=== PATIENT | female | born 1995 | race Caucasian/White ===

== ENCOUNTER 2024-06-08 19:11 | Inpatient (IN) | payer OTHER, SELFPAY ==
[2024-06-08 19:40] VITALS: BP 150/108; PULSE 99; RESP 18; TEMP 36.8; O2SAT 97; BMI 30.8
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
--- NOTE | 2024-06-09 00:22 | PC.NURSE ---
pt signed a 3 day notice on thursday06/08/24. up on thursday06/14/24.
[2024-06-09] MEDS: LORazepam 1 MG TABLET 2 MG PO (00:31)
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
[2024-06-09] MEDS: Escitalopram Oxalate 10 MG TABLET PO (09:11)
[2024-06-09 11:25] LABS: Estimated Average Glucose 103 mg/dL; Hemoglobin A1C 113.6566 umol/L; Hemoglobin A1c % 5.2 % (<6.0); Total Hemoglobin (HGBA1C) 3420.9918 umol/L
[2024-06-09 11:39] LABS: Alanine Aminotransferase 16 U/L (0-31); Albumin Level 4.4 g/dL (3.5-5.0); Alkaline Phosphatase 85 U/L (39-117); Anion Gap 17 (12-20); Aspartate Amino Transferase 21 U/L (5-31); Bilirubin Total 0.5 mg/dL (0.0-1.0); Blood Urea Nitrogen 12 mg/dL (9-16); Calcium 9.3 mg/dL (8.4-10.2); Carbon Dioxide 21 mmol/L (22-29); Chloride 105 mmol/L (96-108); Cholesterol 147 mg/dL (<200); Creatinine Clr Calc Pharmacy 99.7; Estimated Glomerular Filt Rate > 60; Glucose Fasting 115 mg/dL (60-99); HDL Cholesterol 32 mg/dL (>40); LDL Cholesterol Calculated 97 mg/dL (<100); Potassium 3.5 mmol/L (3.3-5.1); Sodium 139 mmol/L (135-145); Total Protein 7.4 g/dL (6.5-8.0); Triglycerides 92 mg/dL (<150)
[2024-06-09 11:54] LABS: Thyroid Stimulating Hormone 0.95 uIU/mL (0.32-4.0)
[2024-06-09 12:02] LABS: Folate 11.1 ng/mL (> or = 4.0); Vitamin B12 712 pg/mL (200-900)
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
[2024-06-09 15:22] VITALS: BP 133/86; PULSE 98; RESP 20; TEMP 36.8; O2SAT 97
[2024-06-09 20:00] VITALS: BP 151/86; PULSE 117; TEMP 36.9; O2SAT 98
[2024-06-09] MEDS: risperiDONE 0.5 MG TABLET PO (20:19)
[2024-06-10 08:00] VITALS: BP 143/84; PULSE 104; RESP 16; TEMP 36.3; O2SAT 96
[2024-06-10] MEDS: risperiDONE 0.5 MG TABLET PO (08:59)
[2024-06-10] MEDS: oxyBUTYnin chloride 5 MG TABLET PO (08:59)
[2024-06-10] MEDS: Escitalopram Oxalate 10 MG TABLET PO (08:59)
--- NOTE | 2024-06-10 15:04 | HO.PSYCHPN ---
Subjective Subjective Date of Service: 06/10/24 Reason For Visit: Unspec Psychosis Acute Stress Reaction Interim History: Labile, angry, with paranoia. Observed to be caustic and intrusive at times. Confrontive to team Visiting with family today. Denies current concerns, needs Accepting medications Medication Compliance: Yes Side effects from medications: No Attending Groups: No Review of Systems Acute medical concerns: No Review of Systems Review of Systems denies Mental Status Exam Mental Status Exam Patient Appearance: Appropriate Patient Orientation: Person, Place and Situation Level of Consciousness: Awake and Alert Patient Behavior: Cooperative, Suspicious, Wandering and Good Eye Contact Mood Description: Suspicious, Hostile and Labile Affect Description: Labile Patient Cognition Impaired: No Ability to Follow Directions: Fair Speech Pattern: Clear and Spontaneous Speech Memory Description: Episodic Impaired Delusions: Paranoid Ideation Perceptual Disturbances: Derealization Thought Content: positive for Tangential and positive for Disorganized Abnormal Motor Activity Signs and Symptoms: Restlessness Judgement: Poor Diagnostics Vital Signs (24Hr): Vital Signs - 24 hr 06/09/24 15:22 06/09/24 20:00 06/10/24 08:00 Temperature 98.2 F 98.4 F 97.4 F Pulse Rate 98 117 H 104 H Respiratory Rate 20 16 Blood Pressure 133/86 151/86 H 143/84 H Pulse Oximetry 97 98 96 Oxygen Delivery Method Room Air Room Air BMI result Body Mass Index 30.8 Labs 06/09/24 11:01 Labs: Laboratory Results - last 48 hr 06/09/24 11:01 Sodium 139 Potassium 3.5 Chloride 105 Carbon Dioxide 21 L Anion Gap 17 BUN 12 Creatinine 0.81 Estim Creat Clear Calc 99.7 Estimated GFR > 60 Fasting Glucose 115 H Estimat Average Glucose 103 Hemoglobin A1c % 5.2 Calcium 9.3 Total Bilirubin 0.5 AST 21 ALT 16 Alkaline Phosphatase 85 Total Protein 7.4 Albumin 4.4 Triglycerides 92 Cholesterol 147 LDL Cholesterol, Calc 97 HDL Cholesterol 32 L Vitamin B12 712 Folate 11.1 TSH 0.95 Medications Medications Current Medications Acetaminophen (Acetaminophen 325 Mg Tablet) 650 mg PO Q6H PRN PRN Reason: Headache/Pain Mild Scale (1-3) Al Hydroxide/Mg Hydroxide (Magnesium Hydrox/Alum Hydrox 30 Ml Oral.Susp) 30 ml PO Q6H PRN PRN Reason: Heartburn/Nausea Escitalopram Oxalate (Escitalopram Oxalate 10 Mg Tablet) 10 mg PO DAILY [facility] Last Admin: 06/10/24 08:59 Dose: 10 mg Hydroxyzine HCl (Hydroxyzine Hcl 25 Mg Tablet) 25 mg PO Q6H PRN PRN Reason: Anxiety Magnesium Hydroxide (Milk Of Magnesia 30 Ml Oral.Susp) 30 ml PO DAILY PRN PRN Reason: Constipation Nicotine (Nicotine 21 Mg Patch.Td24) 21 mg TRANSDERMA DAILY PRN PRN Reason: nicotine cravings Olanzapine (Olanzapine 5 Mg Tablet) 5 mg PO Q4H PRN PRN Reason: agitation Oxybutynin Chloride (Oxybutynin Chloride 5 Mg Tablet) 5 mg PO DAILY [facility] Last Admin: 06/10/24 08:59 Dose: 5 mg Risperidone (Risperidone 0.5 Mg Tablet) 0.5 mg PO BID [facility] Last Admin: 06/10/24 08:59 Dose: 0.5 mg Trazodone HCl (Trazodone Hcl 50 Mg Tablet) 50 mg PO BEDTIME MRX1 PRN PRN Reason: Insomnia Allergies Allergies Allergy/AdvReac Type Severity Reaction Status Date / Time No Known Allergies Allergy Verified 06/08/24 20:02 Assessment & Plan Assessment & Plan (1) PTSD (post-traumatic stress disorder): Status: Acute Code(s): F43.10 - Post-traumatic stress disorder, unspecified (2) MDD (major depressive disorder), recurrent episode, severe: Status: Acute Code(s): F33.2 - Major depressive disorder, recurrent severe without psychotic features Plan 06/10/24 Continue current plan of care. Reason for continued inpatient stay Substantial Risk for: rapid decompensation Time Spent With Patient Time: Total time managing care of this patient today ____ minutes.
[2024-06-10 20:00] VITALS: BP 136/75; PULSE 127; RESP 16; TEMP 37; O2SAT 98
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
[2024-06-11] MEDS: OLANZapine 10 MG VIAL IM (13:05)
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
[2024-06-11 13:20] VITALS: BP 129/78; PULSE 105; RESP 18; O2SAT 96
--- NOTE | 2024-06-11 13:26 | PC.NURSE ---
Pt increasingly more manic, disorganized as shift goes on. Wanting to leave. Trying to push past staff and visitors trying to elope. Punching holes in wall by door. Refusing all redirection. Happily posturing towards staff while laughing. Security and MD contacted. IMs ordered and given.
[2024-06-12 07:57] VITALS: BP 124/78; PULSE 115; TEMP 36.4; O2SAT 97
[2024-06-12] MEDS: HaloperidoL 5 MG TABLET PO ×2 (08:56→21:42)
[2024-06-12] MEDS: risperiDONE 0.5 MG TABLET PO ×2 (08:57→21:42)
[2024-06-12] MEDS: LORazepam 1 MG TABLET PO ×2 (08:58→21:42)
--- NOTE | 2024-06-12 09:15 | HO.PSYCHPN ---
Subjective Subjective Date of Service: 06/12/24 Reason For Visit: Unspec Psychosis Acute Stress Reaction Interim History: Remains restless, labile, intrusive, loud, agitated and paranoid. Agreed to take Risperdal and Haldol this AM with encouragement from RN. She remained angry. Was yelling and demanding DC and threatening she would harm self. Discussed with staff and alerted them to statements and continued close monitoring. Patient demanding discharge. Insight is very poor. Doesn't see there is anything wrong with her mood and behavior. Continues paranoid. Review of Systems Review of Systems denies Constitutional: Reports as per HPI Eyes: Reports as per HPI Reports as per HPI Cardiovascular: Reports as per HPI Respiratory: Reports as per HPI Gastrointestinal: Reports as per HPI Musculoskeletal: Reports as per HPI Skin/Breast: Reports as per HPI Reports as per HPI Psychiatric: Reports as per HPI Endocrine: Reports as per HPI Hematologic/Lymphatic: Reports as per HPI Allergic/Immunologic: Reports as per HPI Mental Status Exam Mental Status Exam Patient Appearance: Appropriate Patient Orientation: Person, Place and Situation Level of Consciousness: Awake and Alert Patient Behavior: Cooperative, Suspicious, Wandering and Good Eye Contact Mood Description: Suspicious, Hostile and Labile Affect Description: Labile Patient Cognition Impaired: No Ability to Follow Directions: Fair Speech Pattern: Clear and Spontaneous Speech Memory Description: Episodic Impaired Diagnostics Vital Signs (24Hr): Vital Signs - 24 hr 06/11/24 13:20 06/12/24 07:57 Temperature 97.5 F Pulse Rate 105 H 115 H Respiratory Rate 18 Blood Pressure 129/78 124/78 Pulse Oximetry 96 97 Oxygen Delivery Method Room Air Room Air BMI result Body Mass Index 30.8 Labs 06/09/24 11:01 Medications Medications Current Medications Acetaminophen (Acetaminophen 325 Mg Tablet) 650 mg PO Q6H PRN PRN Reason: Headache/Pain Mild Scale (1-3) Al Hydroxide/Mg Hydroxide (Magnesium Hydrox/Alum Hydrox 30 Ml Oral.Susp) 30 ml PO Q6H PRN PRN Reason: Heartburn/Nausea Haloperidol (Haloperidol 5 Mg Tablet) 5 mg PO BID PRN PRN Reason: agitation Last Admin: 06/12/24 08:56 Dose: 5 mg Hydroxyzine HCl (Hydroxyzine Hcl 25 Mg Tablet) 25 mg PO Q6H PRN PRN Reason: Anxiety Lorazepam (Lorazepam 1 Mg Tablet) 1 mg PO BID PRN PRN Reason: Anxiety Last Admin: 06/12/24 08:58 Dose: 1 mg Magnesium Hydroxide (Milk Of Magnesia 30 Ml Oral.Susp) 30 ml PO DAILY PRN PRN Reason: Constipation Nicotine (Nicotine 21 Mg Patch.Td24) 21 mg TRANSDERMA DAILY PRN PRN Reason: nicotine cravings Olanzapine (Olanzapine 5 Mg Tablet) 5 mg PO Q4H PRN PRN Reason: agitation Oxybutynin Chloride (Oxybutynin Chloride 5 Mg Tablet) 5 mg PO DAILY [facility] Last Admin: 06/11/24 08:44 Dose: Not Given Risperidone (Risperidone 0.5 Mg Tablet) 0.5 mg PO BID [facility] Last Admin: 06/12/24 08:57 Dose: 0.5 mg Trazodone HCl (Trazodone Hcl 50 Mg Tablet) 50 mg PO BEDTIME MRX1 PRN PRN Reason: Insomnia Allergies Allergies Allergy/AdvReac Type Severity Reaction Status Date / Time No Known Allergies Allergy Verified 06/08/24 20:02 Assessment & Plan Assessment & Plan (1) PTSD (post-traumatic stress disorder): Status: Acute Code(s): F43.10 - Post-traumatic stress disorder, unspecified (2) MDD (major depressive disorder), recurrent episode, severe: Status: Acute Code(s): F33.2 - Major depressive disorder, recurrent severe without psychotic features Plan 06/10/24 Continue current plan of care. 06/11: MILI Lexapro. Continue to encourage PO medication. 06/12: Patient remains manic and psychotic. Encouraged to take medications. Continue current management and treatment plan. Titrate Risperidone. Reason for continued inpatient stay Substantial Risk for: harm to self, harm to others, inability to function and rapid decompensation Time Spent With Patient Time: Total time managing care of this patient today ____ minutes.
--- NOTE | 2024-06-12 12:56 | PC.NURSE ---
Let me out of here! I want to go home!! It's Thursday, I know it is. You are all lying to me! Patient had numerous outbursts on this shift. One outburst when fresh air break was over and she refused to leave group room C, and another when offered meds. She has been intrusive with her peers and has stirred up the unit on several occasions. During her meeting with Dr. Borges she began making suicidal statements which is a change for her. Sylvia did take her morning risperidal along with haldol and ativan with encouragement from the charge nurse.
[2024-06-12 20:00] VITALS: BP 154/79; PULSE 104; RESP 15; O2SAT 96
[2024-06-13 08:15] VITALS: BP 136/85; PULSE 110; RESP 16; TEMP 36.4; O2SAT 96
--- NOTE | 2024-06-13 10:17 | HO.PSYCHPN ---
Subjective Subjective Date of Service: 06/13/24 Reason For Visit: Unspec Psychosis Acute Stress Reaction Subjective Notes: Section 12B (06/14/24) Healthcare Proxy: No Guardianship: No Medical Problems Affecting Mental Status: No Interim History: All right, we can talk to a professor of chemical engineering. You are going down when the professor of chemical engineering gets involved. My grandmother is dying and you are wasting my time keeping me here. You don't listen-you can call my mom, but she is the one who needs to be here. My dad has a better idea of me, my family does not know me, I am 27 you know. Call my dad . Pt experienced a difficult day with agitation, aggression, physical destruction to property, punching holes in purvis. She denies injury and declines diagnostics. She denies physical pain from injury. Refuses Risperdal. Today, she has had Haldol 10 mg, Ativan 3 mg, Diphenhydramine 50 mg and remains angry, agitated at 1640. Call to mother, Kamran, . No answer at [phone]. Call to father [phone] and we are told this number is not in service at this time. Record reviewed, reviewed with team, reviewed with Jamil Villa [facility] who spoke with mother today. Mother reports pt was doing well until 06/05 when sx arose. This is her first psych admit. Lexapro was held on admit-she appears to be presenting with brigitte/psychosis Medication Compliance: Intermittent Side effects from medications: No Attending Groups: No Review of Systems Acute medical concerns: No Review of Systems Review of Systems Denies Mental Status Exam Mental Status Exam Patient Appearance: Appropriate Patient Orientation: Person, Place and Situation Level of Consciousness: Awake and Alert Patient Behavior: Cooperative, Suspicious, Wandering and Good Eye Contact Mood Description: Suspicious, Hostile, Labile and Angry Affect Description: Hostile, Labile and Angry Patient Cognition Impaired: No Ability to Follow Directions: Fair Speech Pattern: Clear and Spontaneous Speech Memory Description: Episodic Impaired Thought Process: Rumination Thought Content: positive for Perseveration, positive for Preoccupation and positive for Suicidal Ideation (denies) Depressive Symptoms: Thoughts of /Suicide (denies) Abnormal Motor Activity Signs and Symptoms: Aggression, Agitation and Restlessness Judgement: Poor Diagnostics Vital Signs (24Hr): Vital Signs - 24 hr 06/12/24 20:00 12/02/24 08:15 Temperature 97.5 F Pulse Rate 104 H 110 H Respiratory Rate 15 16 Blood Pressure 154/79 H 136/85 Pulse Oximetry 96 96 Oxygen Delivery Method Room Air BMI result Body Mass Index 30.8 Labs 06/09/24 11:01 Medications Medications Current Medications Acetaminophen (Acetaminophen 325 Mg Tablet) 650 mg PO Q6H PRN PRN Reason: Headache/Pain Mild Scale (1-3) Al Hydroxide/Mg Hydroxide (Magnesium Hydrox/Alum Hydrox 30 Ml Oral.Susp) 30 ml PO Q6H PRN PRN Reason: Heartburn/Nausea Haloperidol (Haloperidol 5 Mg Tablet) 5 mg PO BID PRN PRN Reason: agitation Last Admin: 06/12/24 21:42 Dose: 5 mg Hydroxyzine HCl (Hydroxyzine Hcl 25 Mg Tablet) 25 mg PO Q6H PRN PRN Reason: Anxiety Lorazepam (Lorazepam 1 Mg Tablet) 1 mg PO BID PRN PRN Reason: Anxiety Last Admin: 06/12/24 21:42 Dose: 1 mg Magnesium Hydroxide (Milk Of Magnesia 30 Ml Oral.Susp) 30 ml PO DAILY PRN PRN Reason: Constipation Nicotine (Nicotine 21 Mg Patch.Td24) 21 mg TRANSDERMA DAILY PRN PRN Reason: nicotine cravings Olanzapine (Olanzapine 5 Mg Tablet) 5 mg PO Q4H PRN PRN Reason: agitation Oxybutynin Chloride (Oxybutynin Chloride 5 Mg Tablet) 5 mg PO DAILY [facility] Last Admin: 06/12/24 10:19 Dose: Not Given Risperidone (Risperidone 1 Mg Tablet) 1 mg PO BID [facility] Trazodone HCl (Trazodone Hcl 50 Mg Tablet) 50 mg PO BEDTIME MRX1 PRN PRN Reason: Insomnia Allergies Allergies Allergy/AdvReac Type Severity Reaction Status Date / Time No Known Allergies Allergy Verified 06/08/24 20:02 Assessment & Plan Assessment & Plan (1) PTSD (post-traumatic stress disorder): Status: Acute Code(s): F43.10 - Post-traumatic stress disorder, unspecified (2) MDD (major depressive disorder), recurrent episode, severe: Status: Acute Code(s): F33.2 - Major depressive disorder, recurrent severe without psychotic features Plan 06/10/24 Continue current plan of care. 06/11: DC Lexapro. Continue to encourage PO medication. 06/12: Patient remains manic and psychotic. Encouraged to take medications. Continue current management and treatment plan. Titrate Risperidone. 06/13: Pt refusing Risperidone. 12B to 06/14. Pt believes her father will agree to take her home. Consider Section 7. Reason for continued inpatient stay Substantial Risk for: rapid decompensation Time Spent With Patient Time: Total time managing care of this patient today ____ minutes.
[2024-06-13] MEDS: HaloperidoL 5 MG TABLET PO ×2 (14:32→15:10)
[2024-06-13] MEDS: LORazepam 1 MG TABLET PO (14:32)
[2024-06-13] MEDS: diphenhydrAMINE HCL 25 MG CAPSULE 50 MG PO (15:10)
[2024-06-13] MEDS: LORazepam 1 MG TABLET 2 MG PO (15:10)
--- NOTE | 2024-06-13 15:13 | P.EN_ITS ---
Event Note Date of Service: 06/13/24 Event Note: pt continues to smash purvis, breaking through dry wall, exposing screws and endangering herself; very difficult to redirect. Security called. Pt says she is destroying things because the only way i can get people to talk to me is if i do something bad... adjusto writer operator explained need to get back in control and she accepted prn medicaiton. Pt says she's been lied to about how long she has to stay for admission and just wants to get back to see her grandmother and say valencia (says she's got dementia and dying). Dinkey Engineer offered to discuss admission/times regarding but pt did not want to. Time Spent With Patient Time: Total time managing care of this patient today ____ minutes.
[2024-06-13] MEDS: OLANZapine 10 MG VIAL IM (17:42)
[2024-06-13] MEDS: LORazepam 2 MG/ML VIAL IM (17:42)
--- NOTE | 2024-06-13 17:42 | HO.PSYEVENT ---
Event Note Date of Service: 06/13/24 Psych Restraint Event Note: pt again became out of control, yelling, banging on wall, ripping off parts of wall and placing herself in danger of self-harm, exposing herself to exposed peices of broken wood, screws. Pt could not be redirected by staff, security called; staff had to use physical hold to walk her down to room, brought restraint chair; pt sat down, but still yelling, started spitting and required IM medications. Gave IM Zyprex 10mg/Ativan 2mg (since haldol had very modest effect) Time Spent With Patient Time: Total time managing care of this patient today ____ minutes.
--- NOTE | 2024-06-13 17:56 | HO.BHRESTREX ---
Behavioral Restraint Exam Behavioral Health Restraint Exam Type of Restraint: Medication (with physical hold and restraint chair) Reason for Restraint: Occurrence of self-harming or suicidal behavior as evidenced by: (hitting purvis; exposing self screws, splintered wood) Medical Concerns for Restraint: No medical concerns, pt w/o acute inj / no noted resp/VS abnormalities Behavioral Assessment / Plan: Concerns / further recommendations, explain below: (adjust med regimen as not sure if haldol, zyprexa all that effective) Comment: pt remained yelling, screaming hysterically, very difficult to engage. B/L pulses radial/pedal Patient asking for additional medication to help calm down; ordered Xanax and reviewed chart and looks like manic episode so adding depakote.
[2024-06-13 20:00] VITALS: BP 139/79; PULSE 104; TEMP 37; O2SAT 96
--- NOTE | 2024-06-13 20:47 | PC.NURSE ---
Addendum entered by Alison Schuster RN 06/15/24 09:08: Clarification: Pt began punching and kicking wall with such force that she became an imminent danger to self. Original Note: This evening, Sylvia became agitated shortly after meeting with provider. She made several loud phone calls and was overheard stating Come get me the fuck out of here! . She approached nurse's station and stated So what happens next? My practitioner lied to me. Noone called my house and left a message. Do I need to tear this fucking place apart again? . She then began screaming and went to the spot on the wall in the milieu next to shower A that she had kicked and damaged earlier in the day. She began punching and kicking the wall while screaming Is this what I have to do!? . She proceeded to begin ripping off material that had been placed by engineering to cover the hole that she had kicked into the wall earlier in the day. Code assist was called and Sylvia was placed in physical restraint at 15:27 and escorted to group room B where she was placed in mechanical restraints (chair) at 17:29. She was given ativan 2mg and zyprexa 10mg IM at 17:42.
[2024-06-14] MEDS: oxyBUTYnin chloride 5 MG TABLET PO (11:00)
[2024-06-14] MEDS: risperiDONE 1 MG TABLET PO ×2 (13:13→20:56)
[2024-06-14 19:59] VITALS: BP 130/74; PULSE 118; TEMP 36.7; O2SAT 97
[2024-06-14] MEDS: Divalproex Sodium ER 250 MG TAB.ER.24H 750 MG PO (20:55)
--- NOTE | 2024-06-14 22:52 | P.PNPSI_ITS ---
Subjective Subjective Date of Service: 06/14/24 Reason For Visit: Unspec Psychosis Acute Stress Reaction Diagnostics Vital Signs (24Hr): Vital Signs - 24 hr 06/14/24 19:59 Temperature 98.1 F Pulse Rate 118 H Blood Pressure 130/74 Pulse Oximetry 97 Oxygen Delivery Method Room Air BMI result Body Mass Index 30.8 Labs 06/09/24 11:01 Medications Medications Current Medications Acetaminophen (Acetaminophen 325 Mg Tablet) 650 mg PO Q6H PRN PRN Reason: Headache/Pain Mild Scale (1-3) Al Hydroxide/Mg Hydroxide (Magnesium Hydrox/Alum Hydrox 30 Ml Oral.Susp) 30 ml PO Q6H PRN PRN Reason: Heartburn/Nausea Divalproex Sodium (Divalproex Sodium Er 250 Mg Tab.Er.24h) 750 mg PO BEDTIME [facility] Last Admin: 06/14/24 20:58 Dose: Not Given Divalproex Sodium (Divalproex Sodium 500 Mg Tablet.Dr) 500 mg PO DAILY [facility] Last Admin: 06/14/24 11:02 Dose: Not Given Hydroxyzine HCl (Hydroxyzine Hcl 25 Mg Tablet) 25 mg PO Q6H PRN PRN Reason: Anxiety Lorazepam (Lorazepam 1 Mg Tablet) 1 mg PO BID PRN PRN Reason: Anxiety Last Admin: 06/13/24 14:32 Dose: 1 mg Magnesium Hydroxide (Milk Of Magnesia 30 Ml Oral.Susp) 30 ml PO DAILY PRN PRN Reason: Constipation Nicotine (Nicotine 21 Mg Patch.Td24) 21 mg TRANSDERMA DAILY PRN PRN Reason: nicotine cravings Olanzapine (Olanzapine 5 Mg Tablet) 5 mg PO Q4H PRN PRN Reason: agitation Oxybutynin Chloride (Oxybutynin Chloride 5 Mg Tablet) 5 mg PO DAILY [facility] Last Admin: 06/14/24 11:00 Dose: 5 mg Risperidone (Risperidone 1 Mg Tablet) 1 mg PO BID [facility] Last Admin: 06/14/24 20:56 Dose: 1 mg Trazodone HCl (Trazodone Hcl 50 Mg Tablet) 50 mg PO BEDTIME MRX1 PRN PRN Reason: Insomnia Allergies Allergies Allergy/AdvReac Type Severity Reaction Status Date / Time No Known Allergies Allergy Verified 06/08/24 20:02 Assessment & Plan Assessment & Plan (1) PTSD (post-traumatic stress disorder): Status: Acute Code(s): F43.10 - Post-traumatic stress disorder, unspecified (2) MDD (major depressive disorder), recurrent episode, severe: Status: Acute Code(s): F33.2 - Major depressive disorder, recurrent severe without psychotic features Plan 06/10/24 Continue current plan of care. 06/11: DC Lexapro. Continue to encourage PO medication. 06/12: Patient remains manic and psychotic. Encouraged to take medications. C ontinue current management and treatment plan. Titrate Risperidone. 06/13: Pt refusing Risperidone. 12B to 06/14. Pt believes her father will agree to take her home. Consider Section 7. Time Spent With Patient Time: Total time managing care of this patient today ____ minutes.
[2024-06-15 08:00] VITALS: BP 110/72; PULSE 98; TEMP 36.6; O2SAT 97
[2024-06-15] MEDS: risperiDONE 1 MG TABLET PO (08:28)
[2024-06-15] MEDS: oxyBUTYnin chloride 5 MG TABLET PO (08:28)
--- NOTE | 2024-06-15 13:53 | HO.PSYCHPN ---
Subjective Subjective Date of Service: 06/15/24 Reason For Visit: Unspec Psychosis Acute Stress Reaction Diagnostics Vital Signs (24Hr): Vital Signs - 24 hr 06/14/24 19:59 06/15/24 08:00 Temperature 98.1 F 97.8 F Pulse Rate 118 H 98 Blood Pressure 130/74 110/72 Pulse Oximetry 97 97 Oxygen Delivery Method Room Air Room Air BMI result Body Mass Index 30.8 Labs 06/09/24 11:01 Medications Medications Current Medications Acetaminophen (Acetaminophen 325 Mg Tablet) 650 mg PO Q6H PRN PRN Reason: Headache/Pain Mild Scale (1-3) Al Hydroxide/Mg Hydroxide (Magnesium Hydrox/Alum Hydrox 30 Ml Oral.Susp) 30 ml PO Q6H PRN PRN Reason: Heartburn/Nausea Divalproex Sodium (Divalproex Sodium Er 250 Mg Tab.Er.24h) 750 mg PO BEDTIME [facility] Last Admin: 06/14/24 20:58 Dose: Not Given Divalproex Sodium (Divalproex Sodium 500 Mg Tablet.Dr) 500 mg PO DAILY [facility] Last Admin: 06/15/24 08:28 Dose: Not Given Hydroxyzine HCl (Hydroxyzine Hcl 25 Mg Tablet) 25 mg PO Q6H PRN PRN Reason: Anxiety Lorazepam (Lorazepam 1 Mg Tablet) 1 mg PO BID PRN PRN Reason: Anxiety Last Admin: 06/13/24 14:32 Dose: 1 mg Magnesium Hydroxide (Milk Of Magnesia 30 Ml Oral.Susp) 30 ml PO DAILY PRN PRN Reason: Constipation Nicotine (Nicotine 21 Mg Patch.Td24) 21 mg TRANSDERMA DAILY PRN PRN Reason: nicotine cravings Olanzapine (Olanzapine 5 Mg Tablet) 5 mg PO Q4H PRN PRN Reason: agitation Oxybutynin Chloride (Oxybutynin Chloride 5 Mg Tablet) 5 mg PO DAILY [facility] Last Admin: 06/15/24 08:28 Dose: 5 mg Risperidone (Risperidone 1 Mg Tablet) 1 mg PO BID [facility] Last Admin: 06/15/24 08:28 Dose: 1 mg Trazodone HCl (Trazodone Hcl 50 Mg Tablet) 50 mg PO BEDTIME MRX1 PRN PRN Reason: Insomnia Allergies Allergies Allergy/AdvReac Type Severity Reaction Status Date / Time No Known Allergies Allergy Verified 06/08/24 20:02 Assessment & Plan Assessment & Plan (1) PTSD (post-traumatic stress disorder): Status: Acute Code(s): F43.10 - Post-traumatic stress disorder, unspecified (2) MDD (major depressive disorder), recurrent episode, severe: Status: Acute Code(s): F33.2 - Major depressive disorder, recurrent severe without psychotic features Plan 06/10/24 Continue current plan of care. 06/11: DC Lexapro. Continue to encourage PO medication. 06/12: Patient remains manic and psychotic. Encouraged to take medications. Continue current management and treatment plan. Titrate Risperidone. 06/13: Pt refusing Risperidone. 12B to 06/14. Pt believes her father will agree to take her home. Consider Section 7. Time Spent With Patient Time: Total time managing care of this patient today ____ minutes.
--- NOTE | 2024-06-15 14:06 | PM.PSYDC ---
DS: Providers Provider Date of Service: 06/15/24 Date of admission: 06/08/24 19:11 Date of discharge: 06/15/24 Primary care physician: Unknown Physician Consults: 06/08/24 19:55 Consult to Hospitalist Routine Comment: Consulting [place] [facility] Reason For Exam: medical H&P 06/10/24 21:06 Consult to Hospitalist Stat Comment: Consulting Provider: [facility] Reason For Exam: restraint DS: Diagnosis Discharge Diagnosis (1) PTSD (post-traumatic stress disorder): Status: Acute (2) MDD (major depressive disorder), recurrent episode, severe: Status: Acute DS: Medications Discharge Medications Home Medications: Previous Rx's ?Medication ?Instructions ?Recorded olanzapine 5 mg tablet 5 mg PO Q4H PRN agitation 30 days 06/15/24 #30 tabs oxybutynin chloride 5 mg tablet 5 mg PO DAILY 30 days #30 tabs 06/15/24 risperidone 1 mg tablet 1 mg PO BID 30 days #60 tabs 06/15/24 Data Data Completed and Pending Completed studies during hospitalization [Text1]: 06/09/24 11:01 Sodium 139 Potassium 3.5 Chloride 105 Carbon Dioxide 21 L Anion Gap 17 BUN 12 Creatinine 0.81 Estim Creat Clear Calc 99.7 Estimated GFR > 60 Fasting Glucose 115 H Estimat Average Glucose 103 Hemoglobin A1c % 5.2 Calcium 9.3 Total Bilirubin 0.5 AST 21 ALT 16 Alkaline Phosphatase 85 Total Protein 7.4 Albumin 4.4 Triglycerides 92 Cholesterol 147 LDL Cholesterol, Calc 97 HDL Cholesterol 32 L Vitamin B12 712 Folate 11.1 TSH 0.95 DS: Summary Time Spent with Patient Time attestation: Total time managing care of this patient today ____ minutes. Discharge Plan Discharge Anticipated Discharge Date/Time: 06/15/24 14:30 Patient Disposition: Home, Self-Care Discharge Diagnosis: Bipolar I disorder, single episode, severe in full remission Referrals: Physician,Unknown J [Primary Care Provider] - 1 Week Discharge Medications: New olanzapine 5 mg Tablet 5 mg PO Q4H PRN (Reason: agitation) 30 Days Qty: 30 0RF risperidone 1 mg Tablet 1 mg PO BID 30 Days Qty: 60 0RF Continued oxybutynin chloride 5 mg Tablet 5 mg PO DAILY 30 Days Qty: 30 0RF Discontinued escitalopram oxalate 10 mg Tablet 10 mg PO DAILY Discharge Orders: Discharge Order (Routine); Ordered 12/04/24 Ordered By: Ye St Diet: Regular diet Activity on Discharge: As tolerated Stand Alone Forms: Patient Portal Discharge page Print Language: Tajik Care Plan Goals: Maintain mood and safe behaviors Take medications as prescribed Continue to pursue sobriety Practice coping skills Continue with outpatient providers and reach out to them as needed Health Concerns: Mood stability and behaviors Plan of Treatment: Follow up with your PCP, psychiatric provider and other outpatient providers regarding above concerns Take medications as prescribed Assessment: Risk assessment at time of discharge:? Patient was interviewed prior to discharge and found to be fully oriented and without any SI or HI. Patient has improved insight and judgment and wants to continue treatment. Patient is not in imminent risk of harm to self or others and has a safety plan that includes presenting to the closest ER or calling 911 if feeling unsafe.? Patient has been observed closely by nursing and unit staff throughout admission; patient has not engaged in any behaviors that suggest dangerousness to self or others and has demonstrated appropriate behaviors and impulse control
== END 2024-06-15 15:16 | disposition home or self-care (01) | DRG 753 ==
PROVIDERS: Social Worker; Admitting Provider Clinical Nurse Specialist Psychiatric/Mental Health, Adult; Visit Provider Clinical Nurse Specialist Psychiatric/Mental Health, Adult
DX: F31.9 Bipolar disorder, unspecified (principal); F43.10 Post-traumatic stress disorder, unspecified; Z79.899 Other long term (current) drug therapy
CPT/HCPCS: 36415; 80053; 80061; 82607; 82746; 83036; 84443; J2060; J2359

== ENCOUNTER → 2024-06-08 19:11 | Outpatient (BNV) | payer MEDICAID, SELFPAY | PROVIDERS: Admitting Provider Clinical Nurse Specialist Psychiatric/Mental Health, Adult; Visit Provider Student in an Organized Health Care Education/Training Program | DX: Z00.8 Encounter for other general examination (principal) | CPT/HCPCS: 99222 ==

== ENCOUNTER → 2024-06-08 19:11 | Outpatient (BNV) | payer OTHER, SELFPAY | PROVIDERS: Admitting Provider Clinical Nurse Specialist Psychiatric/Mental Health, Adult; Visit Provider Clinical Nurse Specialist Psychiatric/Mental Health, Adult | DX: F33.2 Major depressive disorder, recurrent severe without psychotic features (principal); F43.11 Post-traumatic stress disorder, acute | CPT/HCPCS: 99231; 99232; 99233; 99358; 99499 ==